=== PATIENT | female | born 1950 | race Caucasian/White ===

== ENCOUNTER 2020-07-21 21:20 | Emergency (ER) | payer MEDICARE ==
[~2020-07-21] VITALS: Ht 177.8 cm; Wt 102.2 kg
[2020-07-22] MEDS ORDERED: LORTAB 1010 MG PO (00:02)
[2020-07-22 00:27] VITALS: BP 162/84
== END 2020-07-22 00:25 | disposition home or self-care (01) ==
LOC: ED 21:20
DX: S52.502A Unspecified fracture of the lower end of left radius, initial encounter for closed fracture (principal); S82.001A Unspecified fracture of right patella, initial encounter for closed fracture; S73.101A Unspecified sprain of right hip, initial encounter; I10 Essential (primary) hypertension; I48.91 Unspecified atrial fibrillation; F41.9 Anxiety disorder, unspecified; W01.0XXA Fall on same level from slipping, tripping and stumbling without subsequent striking against object, initial encounter; Y92.009 Unspecified place in unspecified non-institutional (private) residence as the place of occurrence of the external cause
CPT/HCPCS: L1830

== ENCOUNTER 2022-02-25 15:44 | Observation (INO) | payer MEDICARE, MEDICAID ==
[2022-02-25] VITALS (9 sets, daily range): BP systolic 126–150; BP diastolic 42–79
[~2022-02-25] VITALS: Ht 177.8 cm; Wt 100.0 kg
[~2022-02-25 15:44] MED LIST: ASPIRIN81 MG PO; BACLOFEN10 MG PO; DIGOXIN0.125 MG PO; FUROSEMIDE20 MG PO; GABAPENTIN100 MG PO; LORAZEPAM0.5 MG PO; LORTAB 1010 MG PO; METOPROL TAR25 MG PO; POTASSIUM CHLO10 MEQ PO; PROTONIX40 M2 PO; ROSUVASTATIN CA10 MG PO; XARELTO10 MG PO
--- NOTE | 2022-02-25 16:13 | NUR ---
PT AMBULATES VIA WHEELCHAIR TO ROOM 8 FOR EVAL OF FALL AND HEAD INJURY AT APPROX 1500
[2022-02-25 16:45] LABS: HEMATOCRIT 42.9 % (37.0-47.0); HEMOGLOBIN 14.2 g/dl (12.0-16.0); IMMATURE GRANULOCYTES 0.1 % (0.0-5.0); MEAN CELL VOLUME 86.3 fL CALC (80.0-100.0); MEAN CORPUSCULAR HGB 28.6 pG CALC (26.0-32.0); MEAN CORPUSCULAR HGB CONC 33.1 g/dL CAL (32.0-36.0); NEUT# 5.58 thou/uL (2.00-7.15); RED BLOOD COUNT 4.97 mill/uL (4.20-5.60); RED CELL DISTRI WIDTH 13.6 % (11.5-15.5)
[2022-02-25 16:56] LABS: ALBUMIN 4.2 g/dL (3.2-5.0); ALKALINE PHOSPHATASE 50 u/l (38-126); ANION GAP 10 (6-22 (CALC)); BUN 15 mg/dL (8-23); BUN/CREATININE RATIO 16 (12-20 (CALC)); CARBON DIOXIDE 28 mmol/l (22-30); CHLORIDE 105 mmol/l (95-108); CREATININE 0.9 mg/dL (0.5-1.0); GFR FOR AFR.AMER. > 60 ML/MIN (>=60 (CALC)); GFR OTHER RACES > 60 ML/MIN (>=60 (CALC)); POTASSIUM 3.7 mmol/l (3.5-5.1); SGOT/AST 27 u/l (9-36); SODIUM 139 mmol/l (137-146); TOTAL PROTEIN 6.7 g/dL (6.3-8.2)
[2022-02-25 17:00] LABS: PROTHROMBIN TIME 10.4 SECONDS (9.0-12.5)
[2022-02-25 17:01] LABS: BILIRUBIN, TOTAL 0.4 mg/dL (0.0-1.4)
--- NOTE | 2022-02-25 18:00 | NUR ---
Reassessment of patient completed. No distress noted.
--- NOTE | 2022-02-25 19:35 | NUR ---
Reassessment of patient completed. No distress noted.
--- NOTE | 2022-02-25 19:53 | NUR ---
PATIENT TO BE ADMITTED TO MED SURG UNIT. PATIENT AWARE AND AGREEABLE WITH PLAN OF CARE. NO ACUTE DISTRESS NOTED. DENIES PAIN OR DISCOMFORT. WILL CONTINUE WITH PLAN OF CARE.
--- NOTE | 2022-02-25 20:29 | NUR ---
Reassessment of patient completed. No distress noted.
--- NOTE | 2022-02-25 21:30 | NUR ---
PATIENT ADMITTED TO MED SURG FLOOR. PATIENT AWARE AND AGREEABLE WITH PLAN OF CARE. PATIENT ALERT AND ORIENTED TIMES THREE. DENIES PAIN OR DISCOMFORT. NO ACUTE DISTRESS NOTED. RESPIRATIONS EVEN AND UNLABORED. SKIN PINK, WARM, AND DRY. PATIENT TRANSPORTED UP STAIRS. BESIDE REPORT GIVEN TO TOBI NIETO.
--- NOTE | 2022-02-25 21:47 | NUR ---
PATIENT BROUGHT TO FLOOR VIA WHEELCHAIR AT THIS TIME BY RN JONES AND REPORT GIVEN. PATIETN ALERT AND ORIENTED X 3 AND STATED PAIN IS A 2 AND STATED DUE TO BUMP ON TOP OF HEAD FROM HER FALL. PATIENT STATES " I DID NOT PASS OUT I SIMPLY FEEL ASLEEP ON MY HI-TOP CHAIR AND FELL OFF WHILE WATCHING MY SOAP OPERA". NEURO CHECKS DONE AT THIS TIME AND ARE NEGATIVE FOR ANY DEFICITS. GRASP ARE STRONG PUPILS ARE EQUAL AND REACT TO LIGHT AND SPEECH IS CLEAR. LABORATORY VETERINARIAN DONE AND LUNG RYAN ARE CLEAR AT THIS TIME AND BOWEL SOUNDS ARE PRESENT AND PATIENT STATES "I HAD A NORMAL BM THIS AM". PATIENT WAS GIVEN AT THIS TIME 12.5MG OF LOPRESSOR AND 0.5MG OF ATIVAN P0 PER DR. CIFUENTES'S ORDERS. PATIENT SKIN IS INTACT AND NO OPEN AREA'S NOTED AT THIS TIME. PATIENT GIVEN INSTRUCTIONS REGARDING CALL LIGHT AND TO CALL PRIOR TO GETTING OUT OF BED. PATIENT ALSO PRESENTS WITH TELE MONITOR AND CURRENTLY READING AFIB AT 53 AND WILL CONTINUE TO BE MONITORED BY ED. SIDERAILS ARE UP X 2 CALL LIGHT IS WITHIN REACH.
[2022-02-26 00:29] VITALS: BP 134/42
--- NOTE | 2022-02-26 00:30 | NUR ---
CALL DR. PEPE REGARDING PATIENT HEART RATE DROPPING INTO THE 30'S BUT NOT SUSTAINING. PATIENT IS ASYMPTOMATIC AND DENIES ANY DISCOMFORT. PATIENT WILL CONTINUE TO BE MONITORED.
--- NOTE | 2022-02-26 02:46 | NUR ---
PATIENT COMPLAINING OF PAIN OF 4 GENERALIZED FROM FALL. PATIENT GIVEN TRAMADOL 50MG PO AT THIS TIME. WILL CONTINUE TO MONITOR.
--- NOTE | 2022-02-26 03:25 | NUR ---
PATIENT STATES PAIN IS NOW A 2 AND THE TRAMADOL HELP. SIDERAILS ARE UP CALL LIGHT IS WITHIN REACH. WILL CONTINUE TO MONITOR. TELE MONITOR IN PLACE AND BEING MONINTORED BY ED.
--- NOTE | 2022-02-26 03:49 | NUR ---
NEURO CHECKS DONE AT THIS TIME AND REMAIN UNCHANGED.
[2022-02-26 04:00] VITALS: BP 133/69
[2022-02-26 04:09] VITALS: BP 133/69
[2022-02-26 05:43] LABS: HEMATOCRIT 42.9 % (37.0-47.0); HEMOGLOBIN 14.1 g/dl (12.0-16.0); MEAN CELL VOLUME 87.9 fL CALC (80.0-100.0); MEAN CORPUSCULAR HGB 28.9 pG CALC (26.0-32.0); MEAN CORPUSCULAR HGB CONC 32.9 g/dL CAL (32.0-36.0); RED BLOOD COUNT 4.88 mill/uL (4.20-5.60); RED CELL DISTRI WIDTH 13.6 % (11.5-15.5)
[2022-02-26 06:01] LABS: ANION GAP 10 (6-22 (CALC)); BUN 13 mg/dL (8-23); BUN/CREATININE RATIO 15 (12-20 (CALC)); CARBON DIOXIDE 31 mmol/l (22-30); CHLORIDE 103 mmol/l (95-108); CREATININE 0.8 mg/dL (0.5-1.0); GFR FOR AFR.AMER. > 60 ML/MIN (>=60 (CALC)); GFR OTHER RACES > 60 ML/MIN (>=60 (CALC)); POTASSIUM 3.9 mmol/l (3.5-5.1); SODIUM 140 mmol/l (137-146)
[2022-02-26 06:38] VITALS: BP 116/74
--- NOTE | 2022-02-26 07:00 | NUR ---
REPORT RECEIVED FROM [employer] ENGINEERFIELD ADJUSTER
[2022-02-26] MEDS ORDERED: ALPRAZOLAM1 MG PO (07:23)
[2022-02-26] MEDS ORDERED: SPIRONOLACT25 MG PO (07:23)
[2022-02-26] MEDS ORDERED: NITROGLYCERIN0.4 MG SL (07:23)
[2022-02-26] MEDS ORDERED: DITROPAN5 MG/TA1 PO (07:24)
--- NOTE | 2022-02-26 08:07 | NUR ---
PT SITTING ON SIDE OF THE BED UPON ENTERING ROOM. TELE MONTIOR IN PLACE, CONTINOUS MONITORING PER ED. IV 22 [address]AC SL. FLUSHED. ASSESSMENT ALLOWED. PT IS A&OX3. STATES NO HEADACHE,N/V, DIZZINESS. ELEVATOR CONSTRUCTOR HELPER ARE MODERATE IN STRENGTH. ABLE TO TAKE PO MEDS WELL. BOWELS ACTIVE X4. LUNG SOUNDS CLEAR. FALL/SAFTEY PRECAUTION IN PLACE. CALL LIGHT WITHIN REACH
[2022-02-26 10:25] VITALS: BP 115/53
[2022-02-26] MEDS ORDERED: XARELTO10 MG PO (12:07)
--- NOTE | 2022-02-26 12:58 | NUR ---
PT EATING LUNCH. NO DISTRESS NOTED. BREATHING EVEN AND UNLABORED. FALL/SAFTEY PRECAUTION IN PLACE. CALL LIGHT WITHIN REACH.
--- NOTE | 2022-02-26 15:30 | NUR ---
IV site discontinued, cath intact. No edema , no redness, voices no discomfort.
--- NOTE | 2022-02-26 15:34 | NUR ---
Discharge instructions given. Patient verbalizes understanding of same. Discharged in stable condition via Ambulatory to Home. All belongings sent with pt.
== END 2022-02-26 15:34 | disposition home or self-care (01) ==
LOC: ED 15:44 → ED-I 18:50 → ED 19:12 → MS2 19:13
PROVIDERS: Family Medicine; ADMIT Hospitalist; ATTEND Hospitalist
DX: S00.03XA Contusion of scalp, initial encounter (principal); I48.91 Unspecified atrial fibrillation; I10 Essential (primary) hypertension; G47.30 Sleep apnea, unspecified; W07.XXXA Fall from chair, initial encounter; Y92.009 Unspecified place in unspecified non-institutional (private) residence as the place of occurrence of the external cause; Z95.5 Presence of coronary angioplasty implant and graft; Z79.01 Long term (current) use of anticoagulants; Z20.822 Contact with and (suspected) exposure to COVID-19
CPT/HCPCS: G0378

== ENCOUNTER 2022-11-29 06:47 | Day surgery (SDC) | payer MEDICARE, MEDICAID ==
[~2022-11-29] VITALS: Ht 177.8 cm; Wt 113.4 kg
[~2022-11-29 06:47] MED LIST changes: +ALDACTONE25 MG PO; +ALPRAZOLAM1 MG PO; +DITROPAN5 MG/TA1 PO; +NITROGLYCERIN0.4 MG SL; +SPIRONOLACT25 MG PO
[2022-11-29 09:12] VITALS: BP 125/81
== END 2022-11-29 09:50 | disposition home or self-care (01) ==
LOC: ENDO 06:47 → ORM 08:40 → ENDO 08:40 → ORM 09:45 → ENDO 09:50
PROVIDERS: ATTEND Surgery
PROC: 0DBL8ZX Excision of Transverse Colon, Via Natural or Artificial Opening Endoscopic, Diagnostic (ICD-10-PCS; principal; 2022-11-29)
PROC: 0DB48ZX Excision of Esophagogastric Junction, Via Natural or Artificial Opening Endoscopic, Diagnostic (ICD-10-PCS; 2022-11-29)
PROC: 0DB78ZX Excision of Stomach, Pylorus, Via Natural or Artificial Opening Endoscopic, Diagnostic (ICD-10-PCS; 2022-11-29)
DX: Z12.11 Encounter for screening for malignant neoplasm of colon (principal); D12.3 Benign neoplasm of transverse colon; K64.8 Other hemorrhoids; K22.70 Barrett's esophagus without dysplasia; K29.50 Unspecified chronic gastritis without bleeding; K21.00 Gastro-esophageal reflux disease with esophagitis, without bleeding; K44.9 Diaphragmatic hernia without obstruction or gangrene; I12.9 Hypertensive chronic kidney disease with stage 1 through stage 4 chronic kidney disease, or unspecified chronic kidney disease; N18.1 Chronic kidney disease, stage 1; I48.91 Unspecified atrial fibrillation; E66.01 Morbid (severe) obesity due to excess calories; G62.9 Polyneuropathy, unspecified; Z86.010 Personal history of colon polyps; Z80.0 Family history of malignant neoplasm of digestive organs; Z95.5 Presence of coronary angioplasty implant and graft

== ENCOUNTER 2024-02-03 08:39 | Emergency (ER) | payer MEDICARE ==
[~2024-02-03] VITALS: Ht 177.8 cm; Wt 89.8 kg
[2024-02-03] VITALS (11 sets, daily range): BP systolic 97–117; BP diastolic 47–76
[~2024-02-03 08:39] MED LIST changes: +CEPHALEXIN500 M1 PO; +TERBINAFINE250 M1 PO
== END 2024-02-03 12:27 | disposition home or self-care (01) ==
LOC: ED 08:39
DX: S16.1XXA Strain of muscle, fascia and tendon at neck level, initial encounter (principal); I48.91 Unspecified atrial fibrillation; M25.531 Pain in right wrist; M25.562 Pain in left knee; M54.50 Low back pain, unspecified; W01.190A Fall on same level from slipping, tripping and stumbling with subsequent striking against furniture, initial encounter

== ENCOUNTER 2024-04-02 12:01 | Emergency (ER) | payer MEDICARE ==
[~2024-04-02] VITALS: Ht 177.8 cm; Wt 92.0 kg
[2024-04-02] VITALS (8 sets, daily range): BP systolic 106–123; BP diastolic 61–74
[2024-04-02 12:46] LABS: BASO% 0.4 % (0-3); EOS% 1.7 % (0-8); HEMATOCRIT 43.1 % (37.0-47.0); HEMOGLOBIN 14.3 g/dl (12.0-16.0); IMMATURE GRANULOCYTES 0.1 % (0.0-5.0); LYMPH% 27.8 % (15-41); MEAN CELL VOLUME 85.5 fL CALC (80.0-100.0); MEAN CORPUSCULAR HGB 28.4 pG CALC (26.0-32.0); MEAN CORPUSCULAR HGB CONC 33.2 g/dL CAL (32.0-36.0); MONO% 8.3 % (2-13); NEUT# 4.97 thou/uL (2.00-7.15); NEUT% 61.7 % (42-76); RED BLOOD COUNT 5.04 mill/uL (4.20-5.60); RED CELL DISTRI WIDTH 13.4 % (11.5-15.5)
[2024-04-02 12:53] LABS: ALBUMIN 4.4 g/dL (3.2-5.0); CREATININE 0.9 mg/dL (0.5-1.0); POTASSIUM 4.4 mmol/l (3.5-5.1)
[2024-04-02 12:55] LABS: DIGOXIN 0.7 ng/mL (0.8-2.0); MAGNESIUM 1.9 mg/dL (1.6-2.3)
[2024-04-02 13:48] LABS: URINE BILIRUBIN - DIPSTICK Negative (NEGATIVE); URINE BLOOD DIPSTICK Trace-lysed (NEGATIVE); URINE GLUCOSE - DIPSTICK Negative (NEGATIVE); URINE KETONE Negative (NEGATIVE); URINE LEUK ESTERASE Negative (NEGATIVE); URINE NITRITE - DIPSTICK Negative (Negative); URINE PH 5.5 (4.5-8.0); URINE PROTEIN - DIPSTICK Negative (NEG-TRACE); URINE SPECIFIC GRAVITY <=1.005; URINE UROBILINOGEN - DIPSTICK 0.2 E.U./dL (0.2)
[2024-04-02 13:50] LABS: URINE COLOR Yellow
== END 2024-04-02 14:20 | disposition home or self-care (01) ==
LOC: ED 12:01
PROVIDERS: Family Medicine; Nurse Practitioner
DX: Z03.89 Encounter for observation for other suspected diseases and conditions ruled out (principal); I48.20 Chronic atrial fibrillation, unspecified; E11.9 Type 2 diabetes mellitus without complications; Z95.0 Presence of cardiac pacemaker; Z20.822 Contact with and (suspected) exposure to COVID-19

== ENCOUNTER 2024-11-04 12:30 | Observation (INO) | payer MEDICARE ==
[~2024-11-04] VITALS: Ht 177.8 cm; Wt 81.0 kg
[2024-11-04] VITALS (17 sets, daily range): BP systolic 74–147; BP diastolic 41–98
[~2024-11-04 12:30] MED LIST changes: +DIGOXIN125 MCG PO; -METOPROL TAR25 MG PO; +NYSTOP100000 UNI TOP; +TOPROL XL25 M1 PO; +XARELTO20 MG PO
[2024-11-04 12:55] LABS: BASO% 0.3 % (0-3); EOS% 0.6 % (0-8); HEMATOCRIT 44.3 % (37.0-47.0); HEMOGLOBIN 14.9 g/dl (12.0-16.0); LYMPH% 21.1 % (15-41); MEAN CELL VOLUME 84.9 fL CALC (80.0-100.0); MEAN CORPUSCULAR HGB 28.5 pG CALC (26.0-32.0); MEAN CORPUSCULAR HGB CONC 33.6 g/dL CAL (32.0-36.0); MONO% 3.9 % (2-13); NEUT# 6.46 thou/uL (2.00-7.15); NEUT% 74.1 % (42-76); RED BLOOD COUNT 5.22 mill/uL (4.20-5.60); RED CELL DISTRI WIDTH 13.2 % (11.5-15.5)
[2024-11-04] MEDS ORDERED: SODIUM CHLORIDE 0.9% 1,000 ML IV ONE (13:05)
[2024-11-04 13:14] LABS: ALBUMIN 4.5 g/dL (3.2-5.0); ALKALINE PHOSPHATASE 45 u/l (38-126); ANION GAP 16 (6-22 (CALC)); BILIRUBIN, TOTAL 1.1 mg/dL (0.02-1.3); BUN 19 mg/dL (8-23); BUN/CREATININE RATIO 18 (12-20 (CALC)); CARBON DIOXIDE 24 mmol/l (22-30); CHLORIDE 102 mmol/l (95-108); CREATININE 1.1 mg/dL (0.5-1.0); ESTIMATED GFR 53 ML/MIN (>=90 (CALC)); POTASSIUM 3.7 mmol/l (3.5-5.1); SGOT/AST 32 u/l (9-36); SODIUM 138 mmol/l (137-146); TOTAL PROTEIN 7.2 g/dL (6.3-8.2)
[2024-11-04] MEDS ORDERED: ACETAMINOPHEN 325 MG/TAB PO PRN (16:00)
[2024-11-04] MEDS ORDERED: SODIUM CHLORIDE 0.9% 1,000 ML IV PRN (16:00)
[2024-11-04] MEDS ORDERED: MAGNESIUM HYDROXIDE 30 ML UDC PO PRN (16:00)
[2024-11-04 16:25] LABS: URINE BILIRUBIN - DIPSTICK Negative (NEGATIVE); URINE BLOOD DIPSTICK Negative (NEGATIVE); URINE GLUCOSE - DIPSTICK Negative (NEGATIVE); URINE KETONE Negative (NEGATIVE); URINE NITRITE - DIPSTICK Negative (Negative); URINE PH 5.5 (4.5-8.0); URINE PROTEIN - DIPSTICK Negative (NEG-TRACE); URINE SPECIFIC GRAVITY <=1.005; URINE UROBILINOGEN - DIPSTICK 0.2 E.U./dL (0.2)
[2024-11-04 16:26] LABS: URINE COLOR Yellow; URINE LEUK ESTERASE Small (NEGATIVE)
[2024-11-04 16:40] LABS: URINE BACTERIA FEW hpf; URINE HYALINE CAST FEW lpf (NONE-RARE); URINE SQUAMOUS EPITHELIAL CELL FEW EPI/hpf (0-FEW)
[2024-11-04] MEDS ORDERED: GABAPENTIN 300 MG/CAP PO SCH (17:14)
[2024-11-04] MEDS ORDERED: busPIRone HCL 5 MG/TAB PO SCH (17:15)
[2024-11-04] MEDS ORDERED: ALPRAZolam 0.5 MG/TAB PO SCH (21:00)
[2024-11-04] MEDS ORDERED: BACLOFEN 10 MG/TAB PO SCH (21:00)
[2024-11-04] MEDS ORDERED: Heparin SODIUM (Porcine) 5,000 UNITS/ML SDV SC SCH (22:00)
[2024-11-05] VITALS: BP 138/73
[2024-11-05 03:33] VITALS: BP 127/69
[2024-11-05 04:00] VITALS: BP 127/69
[2024-11-05 04:26] LABS: BASO% 0.4 % (0-3); EOS% 2.5 % (0-8); HEMATOCRIT 40.6 % (37.0-47.0); HEMOGLOBIN 13.7 g/dl (12.0-16.0); IMMATURE GRANULOCYTES 0.1 % (0.0-5.0); LYMPH% 38.2 % (15-41); MEAN CELL VOLUME 85.3 fL CALC (80.0-100.0); MEAN CORPUSCULAR HGB 28.8 pG CALC (26.0-32.0); MEAN CORPUSCULAR HGB CONC 33.7 g/dL CAL (32.0-36.0); MONO% 7.9 % (2-13); NEUT# 4.04 thou/uL (2.00-7.15); NEUT% 50.9 % (42-76); RED BLOOD COUNT 4.76 mill/uL (4.20-5.60); RED CELL DISTRI WIDTH 13.3 % (11.5-15.5)
[2024-11-05 04:41] LABS: ALBUMIN 3.7 g/dL (3.2-5.0); BILIRUBIN, TOTAL 0.7 mg/dL (0.02-1.3); CREATININE 0.8 mg/dL (0.5-1.0); POTASSIUM 3.5 mmol/l (3.5-5.1); TOTAL PROTEIN 5.8 g/dL (6.3-8.2)
[2024-11-05 06:54] VITALS: BP 135/69
[2024-11-05] MEDS ORDERED: DIGOX125 MCG PO (07:23)
[2024-11-05] MEDS ORDERED: GABAPENTIN300 M3 PO (07:24)
[2024-11-05] MEDS ORDERED: ALPRAZOLAM0.5 M2 PO (07:25)
[2024-11-05] MEDS ORDERED: BUSPIRONE10 MG PO (07:26)
[2024-11-05] MEDS ORDERED: OXYBUTYNIN CHLOR5 M2 PO (07:27)
[2024-11-05] MEDS ORDERED: VENLAFAXINE H37.5 M1 PO (07:27)
[2024-11-05] MEDS ORDERED: OZEMPIC4 MG SC (07:28)
[2024-11-05] MEDS ORDERED: ROSUVASTATIN CA20 MG PO (07:29)
[2024-11-05] MEDS ORDERED: PANTOPRAZOLE SO40 M1 PO (07:30)
[2024-11-05] MEDS ORDERED: ALDACTONE25 MG PO (07:31)
[2024-11-05] MEDS ORDERED: NYSTOP100000 UNI (07:31)
[2024-11-05] MEDS ORDERED: LASIX 40 MG TAB40 MG PO (07:37)
[2024-11-05] MEDS ORDERED: METOPROLOL SUCCINATE 25 MG/TAB-TOPROL XL PO SCH (09:00)
[2024-11-05] MEDS ORDERED: PANTOPRAZOLE SODIUM Sesquihydr 40 MG/TAB PO SCH (09:00)
[2024-11-05] MEDS ORDERED: DIGOXIN 0.125 MG/TAB PO SCH (09:00)
[2024-11-05] MEDS ORDERED: RIVAROXABAN 20 MG TAB PO SCH (09:00)
[2024-11-05] MEDS ORDERED: VENLAFAXINE HYDROCHLORIDE 37.5 MG/TAB PO SCH (09:00)
[2024-11-05 09:28] VITALS: BP 145/77
[2024-11-05 11:01] VITALS: BP 145/77
== END 2024-11-05 13:00 ==
LOC: ED 12:30 → ED-I 13:13 → ED 13:13 → ED-I 15:47 → ED 15:57 → MS2 15:58
PROVIDERS: Family Medicine; Nurse Practitioner Family; ADMIT Internal Medicine; ATTEND Internal Medicine
DX: R07.9 Chest pain, unspecified (principal); I95.1 Orthostatic hypotension; I10 Essential (primary) hypertension; E11.9 Type 2 diabetes mellitus without complications; I48.91 Unspecified atrial fibrillation; I25.10 Atherosclerotic heart disease of native coronary artery without angina pectoris; I73.00 Raynaud's syndrome without gangrene; E78.5 Hyperlipidemia, unspecified; F32.A Depression, unspecified; F41.9 Anxiety disorder, unspecified; I25.2 Old myocardial infarction; Z95.5 Presence of coronary angioplasty implant and graft; Z95.0 Presence of cardiac pacemaker; Z20.822 Contact with and (suspected) exposure to COVID-19
CPT/HCPCS: G0378